=== PATIENT | male | born 1995 | race African-American/Black ===

== ENCOUNTER 2021-11-01 20:19 | Inpatient (IN) | payer SELFPAY ==
[~2021-11-01] VITALS: Ht 185.4 cm; Wt 73.1 kg
[2021-11-01] MEDS ORDERED: ONDANSETRON 4MG ODT PO STA (21:05)
[2021-11-01 21:46] LABS: HEMATOCRIT. 47.2 % (42.0-52.0); HEMOGLOBIN. 15.7 g/dL (14.0-18.0); MEAN CORPUSCULAR VOLUME 89.8 fL (80.0-94.0); MEAN PLATELET VOLUME 7.3 fl (7.4-10.4); PLATELET 226 x1000/uL (130-400); RED BLOOD CELL COUNT 5.26 mill/uL (4.7-6.1); RED CELL DISTRIBUTION WIDTH 13.5 % (11.6-14.6)
[2021-11-01 21:48] LABS: CHLORIDE 95 mEq/L (98-107)
[2021-11-01 22:01] LABS: CLARITY URINE CLOUDY (CLEAR); COLOR URINE DARK YELLOW (YELLOW); KETONES URINE 1+ (NEGATIVE); LEUKOCYTE ESTERASE URINE 1+ (NEGATIVE); NITRITE URINE NEGATIVE (NEGATIVE); OCCULT BLOOD URINE NEGATIVE (NEGATIVE); PH URINE 5.5 (4.5-8.0); PROTEIN URINE 2+ (NEGATIVE); SPECIFIC GRAVITY URINE 1.034 (1.005-1.030); UROBILINOGEN URINE 0.2 E.U./dL (0.2-1.0)
[2021-11-01] MEDS ORDERED: ACETAMINOPHEN WITH CODEINE 300/30MG TABLET PO ONE (22:30)
[2021-11-01 22:38] LABS: PLATELET ESTIMATE NORMAL
[2021-11-02] VITALS (25 sets, daily range): BP systolic 110–148; BP diastolic 62–92
[2021-11-02] MEDS ORDERED: MORPHINE SULFATE 4 MG/ML CPJ (NOT FOR IM USE) IV ONE (00:15)
[2021-11-02] MEDS ORDERED: SODIUM CHLORIDE 0.9% 1000ML BAG (SEPSIS BOLUS) IV ONE (01:45)
[2021-11-02] MEDS ORDERED: VANCOMYCIN 1 G PREMIX 200 ML IV ONE (01:45)
[2021-11-02] MEDS ORDERED: PIPERACILLIN/TAZ 3.375G PREMIX 50 ML IV ONE (01:45)
[2021-11-02 02:31] LABS: PROTHROMBIN TIME 10.5 sec (9.6-11.0)
[2021-11-02] MEDS ORDERED: ONDANSETRON HCL 4MG/2ML INJ IV STA (02:33)
[2021-11-02] MEDS ORDERED: MORPHINE SULFATE 4 MG/ML CPJ (NOT FOR IM USE) IV STA (02:33)
[2021-11-02] MEDS ORDERED: DIATR MEGLU/DIATRIZOATE SOLN 120ML ONE (03:16)
[2021-11-02] MEDS ORDERED: IOHEXOL-300 100 ML BOTTLE ONE (03:17)
[2021-11-02] MEDS ORDERED: NALOXONE HCL 0.4MG/ML VIAL IV PRN (06:45)
[2021-11-02] MEDS ORDERED: MORPHINE SULFATE 2 MG/ML CPJ (NOT FOR IM USE) IV PRN (06:45)
[2021-11-02] MEDS ORDERED: DIATR MEGLU/DIATRIZOATE SOLN 30ML ONE (07:55)
[2021-11-02] MEDS ORDERED: MORPHINE SULFATE 2 MG/ML CPJ (NOT FOR IM USE) IV SCH (08:15)
[2021-11-02] MEDS ORDERED: ONDANSETRON HCL 4MG/2ML INJ IV PRN (08:15)
[2021-11-02] MEDS: DEXT 5%/0.9% NACL 1,000 ML IV SCH ×2 (08:17→20:57)
[2021-11-02] MEDS: FAMOTIDINE 20MG/2ML VIAL IV SCH ×2 (08:18→20:47)
[2021-11-02] MEDS ORDERED: SODIUM BICARBONATE 4% (2.4MEQ) 5ML VIAL IV ONE (08:48)
[2021-11-02] MEDS ORDERED: BUPIVACAINE HCL/PF 0.5% (5MG/ML) 10ML ONE (08:49)
[2021-11-02] MEDS ORDERED: FENTANYL CITRATE/PF 50MCG/ML 2ML VIAL ONE (08:58)
[2021-11-02] MEDS ORDERED: LIDOCAINE HCL 1% 20ML VIAL (Pyxis) INJ ONE (09:05)
[2021-11-02] MEDS ORDERED: FENTANYL CITRATE/PF 50MCG/ML 2ML VIAL IV ONE (09:45)
[2021-11-02 10:22] LABS: HEMATOCRIT. 40.7 % (42.0-52.0); HEMOGLOBIN. 13.7 g/dL (14.0-18.0); MEAN CORPUSCULAR HEMOGLOBIN 30.1 pg (28.0-32.0); MEAN CORPUSCULAR VOLUME 89.8 fL (80.0-94.0); MEAN PLATELET VOLUME 6.7 fl (7.4-10.4); PLATELET 183 x1000/uL (130-400); RED BLOOD CELL COUNT 4.53 mill/uL (4.7-6.1); RED CELL DISTRIBUTION WIDTH 13.4 % (11.6-14.6)
[2021-11-02 10:30] LABS: CHLORIDE 101 mEq/L (98-107)
[2021-11-02] MEDS: MORPHINE SULFATE 2 MG/ML CPJ (NOT FOR IM USE) IV PRN ×3 (11:08→20:49)
[2021-11-02] MEDS: PIPERACILLIN/TAZOBACTAM 3.375 G in DEXTROSE 5% WATER 50 ML IV SCH ×2 (11:33→23:29)
[2021-11-02 22:38] LABS: PLATELET ESTIMATE NORMAL
[2021-11-03] VITALS (12 sets, daily range): BP systolic 117–133; BP diastolic 66–86
[2021-11-03] MEDS: MORPHINE SULFATE 2 MG/ML CPJ (NOT FOR IM USE) IV PRN ×2 (03:01→19:58)
[2021-11-03] MEDS: DEXT 5%/0.9% NACL 1,000 ML IV SCH ×3 (03:15→23:00)
[2021-11-03] MEDS: PIPERACILLIN/TAZOBACTAM 3.375 G in DEXTROSE 5% WATER 50 ML IV SCH ×3 (06:49→22:09)
[2021-11-03 07:13] LABS: HEMATOCRIT. 37.8 % (42.0-52.0); HEMOGLOBIN. 12.6 g/dL (14.0-18.0); MEAN CORPUSCULAR HEMOGLOBIN 29.9 pg (28.0-32.0); MEAN CORPUSCULAR VOLUME 89.6 fL (80.0-94.0); MEAN PLATELET VOLUME 7.4 fl (7.4-10.4); PLATELET 201 x1000/uL (130-400); RED BLOOD CELL COUNT 4.22 mill/uL (4.7-6.1); RED CELL DISTRIBUTION WIDTH 13.6 % (11.6-14.6)
[2021-11-03 07:37] LABS: CHLORIDE 105 mEq/L (98-107)
[2021-11-03 07:49] LABS: LDL CHOLESTEROL 51 mg/dL (5-100)
[2021-11-03 07:50] LABS: HDL CHOLESTEROL 25 mg/dL (40-59)
[2021-11-03] MEDS: FAMOTIDINE 20MG/2ML VIAL IV SCH ×2 (09:36→23:53)
[2021-11-03 13:40] LABS: PLATELET ESTIMATE NORMAL
[2021-11-04] VITALS (18 sets, daily range): BP systolic 108–150; BP diastolic 52–79
[2021-11-04] MEDS: MORPHINE SULFATE 2 MG/ML CPJ (NOT FOR IM USE) IV PRN ×2 (01:52→11:47)
[2021-11-04] MEDS: PIPERACILLIN/TAZOBACTAM 3.375 G in DEXTROSE 5% WATER 50 ML IV SCH ×3 (05:47→21:30)
[2021-11-04] MEDS: DEXT 5%/0.9% NACL 1,000 ML IV SCH ×2 (05:50→19:05)
[2021-11-04] MEDS: FAMOTIDINE 20MG/2ML VIAL IV SCH ×2 (08:15→21:30)
[2021-11-04] MEDS ORDERED: IOHEXOL-300 50 ML BOTTLE IV ONE (08:44)
[2021-11-04] MEDS ORDERED: FENTANYL CITRATE/PF 50MCG/ML 2ML VIAL ONE (11:56)
[2021-11-04] MEDS ORDERED: SODIUM BICARBONATE 4% (2.4MEQ) 5ML VIAL IV ONE (11:56)
[2021-11-04] MEDS ORDERED: LIDOCAINE HCL 1% 20ML VIAL (Pyxis) INJ ONE (11:57)
[2021-11-05] VITALS (15 sets, daily range): BP systolic 100–136; BP diastolic 56–93
[2021-11-05] MEDS: DEXT 5%/0.9% NACL 1,000 ML IV SCH ×2 (05:00→18:01)
[2021-11-05] MEDS: PIPERACILLIN/TAZOBACTAM 3.375 G in DEXTROSE 5% WATER 50 ML IV SCH (06:14)
[2021-11-05] MEDS: FAMOTIDINE 20MG/2ML VIAL IV SCH ×2 (08:44→22:34)
[2021-11-05] MEDS: MORPHINE SULFATE 2 MG/ML CPJ (NOT FOR IM USE) IV PRN (08:45)
[2021-11-05] MEDS: AMPICILLIN SOD/SULBACTAM NA 3 G in SODIUM CHLORIDE 0.9% 100 ML IV SCH ×2 (11:57→18:01)
[2021-11-06] VITALS (14 sets, daily range): BP systolic 108–129; BP diastolic 58–84
[2021-11-06] MEDS: DEXT 5%/0.9% NACL 1,000 ML IV SCH ×3 (01:19→20:16)
[2021-11-06] MEDS: AMPICILLIN SOD/SULBACTAM NA 3 G in SODIUM CHLORIDE 0.9% 100 ML IV SCH ×4 (01:19→18:00)
[2021-11-06] MEDS: FAMOTIDINE 20MG/2ML VIAL IV SCH ×2 (08:49→21:00)
[2021-11-06 17:33] LABS: BASOPHILS % 0.3 % (0.0-2.0); HEMATOCRIT. 38.2 % (42.0-52.0); HEMOGLOBIN. 13.3 g/dL (14.0-18.0); LYMPHOCYTES % 14.3 % (20.0-50.0); MEAN CORPUSCULAR HEMOGLOBIN 30.7 pg (28.0-32.0); MEAN CORPUSCULAR VOLUME 88.3 fL (80.0-94.0); MEAN PLATELET VOLUME 6.9 fl (7.4-10.4); MONOCYTES % 11.2 % (2.0-8.0); NEUTROPHILS % 73.2 % (40.0-76.0); PLATELET 250 x1000/uL (130-400); RED BLOOD CELL COUNT 4.33 mill/uL (4.7-6.1); RED CELL DISTRIBUTION WIDTH 13.2 % (11.6-14.6)
[2021-11-06 17:42] LABS: CHLORIDE 104 mEq/L (98-107)
[2021-11-06 17:54] LABS: CREATINE KINASE 155 IU/L (39-308); CREATINE KINASE MB FRACTION < 1.0 ng/mL (0.5-3.6)
[2021-11-06] MEDS ORDERED: POTASSIUM CHLORIDE 20MEQ TABLET SR PO NR (18:30)
[2021-11-06] MEDS: AMOXICILLIN/POTASSIUM CLAVULANATE 875/125MG TAB PO SCH (21:00)
[2021-11-07] VITALS (11 sets, daily range): BP systolic 93–131; BP diastolic 49–84
[2021-11-07] MEDS: DEXT 5%/0.9% NACL 1,000 ML IV SCH ×3 (07:00→22:10)
[2021-11-07] MEDS: FAMOTIDINE 20MG/2ML VIAL IV SCH (09:00)
[2021-11-07] MEDS: AMOXICILLIN/POTASSIUM CLAVULANATE 875/125MG TAB PO SCH ×2 (12:00→20:44)
[2021-11-07] MEDS ORDERED: POTASSIUM CHLORIDE 20MEQ TABLET SR PO NR (15:15)
[2021-11-07 18:17] LABS: CHLORIDE 104 mEq/L (98-107)
[2021-11-07] MEDS: FAMOTIDINE 20MG TABLET PO SCH (20:44)
[2021-11-08] MEDS: FAMOTIDINE 20MG TABLET PO SCH ×2 (08:41→20:10)
[2021-11-08] MEDS: AMOXICILLIN/POTASSIUM CLAVULANATE 875/125MG TAB PO SCH ×2 (08:41→20:10)
[2021-11-08 09:14] VITALS: BP 95/45
[2021-11-08] MEDS: DEXT 5%/0.9% NACL 1,000 ML IV SCH ×2 (11:15→22:26)
[2021-11-09] MEDS: DEXT 5%/0.9% NACL 1,000 ML IV SCH ×2 (07:19→17:02)
[2021-11-09] MEDS: FAMOTIDINE 20MG TABLET PO SCH ×2 (08:33→20:44)
[2021-11-09] MEDS: AMOXICILLIN/POTASSIUM CLAVULANATE 875/125MG TAB PO SCH ×2 (08:33→20:44)
[2021-11-10] MEDS: DEXT 5%/0.9% NACL 1,000 ML IV SCH (05:00)
[2021-11-10 06:31] LABS: BASOPHILS % 0.8 % (0.0-2.0); EOSINOPHILS % 1.5 % (0.0-5.0); HEMATOCRIT. 37.6 % (42.0-52.0); LYMPHOCYTES % 21.4 % (20.0-50.0); MEAN CORPUSCULAR HEMOGLOBIN 30.3 pg (28.0-32.0); MEAN CORPUSCULAR VOLUME 87.7 fL (80.0-94.0); MEAN PLATELET VOLUME 6.7 fl (7.4-10.4); MONOCYTES % 12.8 % (2.0-8.0); NEUTROPHILS % 63.5 % (40.0-76.0); PLATELET 322 x1000/uL (130-400); RED BLOOD CELL COUNT 4.28 mill/uL (4.7-6.1); RED CELL DISTRIBUTION WIDTH 13.3 % (11.6-14.6)
[2021-11-10 06:37] LABS: CHLORIDE 102 mEq/L (98-107)
[2021-11-10] MEDS ORDERED: IOHEXOL-300 50 ML BOTTLE IV ONE (08:33)
[2021-11-10] MEDS: FAMOTIDINE 20MG TABLET PO SCH (09:02)
[2021-11-10] MEDS ORDERED: AMOXICILLIN/POTASSIUM CLAVULANATE 875/125MG TAB PO SCH (11:00)
== END 2021-11-10 11:52 | disposition home or self-care (01) | DRG 720 ==
LOC: ER 20:19 → 3WST 11-02 02:18 → ENRESERV 11-02 02:42
PROVIDERS: ADMIT Family Medicine; ATTEND Family Medicine
PROC: 0W9F3ZX Drainage of Abdominal Wall, Percutaneous Approach, Diagnostic (ICD-10-PCS; principal; 2021-11-02)
PROC: 0F903ZX Drainage of Liver, Percutaneous Approach, Diagnostic (ICD-10-PCS; 2021-11-04)
PROC: BF45ZZZ Ultrasonography of Liver (ICD-10-PCS; 2021-11-04)
DX: A41.51 Sepsis due to Escherichia coli [E. coli] (principal); K65.1 Peritoneal abscess; K56.609 Unspecified intestinal obstruction, unspecified as to partial versus complete obstruction; E87.1 Hypo-osmolality and hyponatremia; K56.7 Ileus, unspecified; D64.9 Anemia, unspecified; N39.0 Urinary tract infection, site not specified; E86.0 Dehydration; F17.210 Nicotine dependence, cigarettes, uncomplicated; Z20.822 Contact with and (suspected) exposure to COVID-19
CPT/HCPCS: 36415; 71045; 74018; 74176; 74177; 76942; 77012; 80048; 80053; 80061; 81003; 82550; 82553; 83880; 84145; 84484; 85025; 86850; 86900; 87077; 87186; 87426; 93005; 99152; 99153; 99285; C1887; J0295; J2270; J2405; J2543; J3010; J3370; J3490; J7030; J7042; J7050; J7060; L8514; Q0162; Q9963; Q9967; G0500

== ENCOUNTER 2021-11-20 13:11 | Emergency (ER) | payer MEDICAID ==
[~2021-11-20] VITALS: Ht 182.9 cm; Wt 73.0 kg
[2021-11-20 13:54] VITALS: BP 101/62
== END 2021-11-20 17:02 | disposition left against medical advice (07) ==
LOC: ER 13:11
DX: Z48.00 Encounter for change or removal of nonsurgical wound dressing (principal)
CPT/HCPCS: 99281

== ENCOUNTER 2021-11-26 15:40 | Emergency (ER) | payer MEDICAID ==
[~2021-11-26] VITALS: Ht 182.9 cm; Wt 73.0 kg
[2021-11-26 15:46] VITALS: BP 107/59
== END 2021-11-26 21:42 | disposition home or self-care (01) ==
LOC: ER 15:40
DX: Z48.00 Encounter for change or removal of nonsurgical wound dressing (principal)
CPT/HCPCS: 99281

== ENCOUNTER 2021-12-02 15:27 | Emergency (ER) | payer MEDICAID ==
[~2021-12-02] VITALS: Ht 182.9 cm; Wt 73.0 kg
[2021-12-02 17:17] VITALS: BP 126/86
== END 2021-12-02 17:18 | disposition home or self-care (01) ==
LOC: ER 15:27
DX: L02.211 Cutaneous abscess of abdominal wall (principal)
CPT/HCPCS: 99281